=== PATIENT | male | born 2000 | race Two or more races ===

== ENCOUNTER 2020-11-02 18:59 | Emergency (ER) | payer SELFPAY ==
[~2020-11-02] VITALS: Ht 167.6 cm; Wt 61.2 kg
[2020-11-02 19:00] VITALS: BP 112/58
--- NOTE | 2020-11-02 19:24 | NUR ---
patient provided with milk to the face/eyes
[2020-11-02] MEDS ORDERED: IBUPROFEN 400 MG TABLET ONE (20:24)
[2020-11-02] MEDS: IBUPROFEN 400 MG TABLET PO ONE (20:26)
--- NOTE | 2020-11-02 21:27 | NUR ---
Patient discharged to home in stable condition. Written and verbal after care instructions given. Patient verbalizes understanding of instruction. Pt ambulatory with a steady gait
== END 2020-11-02 21:28 | disposition home or self-care (01) ==
LOC: ER 19:01
DX: T65.891A Toxic effect of other specified substances, accidental (unintentional), initial encounter (principal); L24.5 Irritant contact dermatitis due to other chemical products; Y92.89 Other specified places as the place of occurrence of the external cause